=== PATIENT | male | born 1985 | race Caucasian/White ===

== ENCOUNTER 2017-01-20 11:51 | Emergency (ER) | payer SELFPAY ==
[~2017-01-20] VITALS: Ht 167.6 cm; Wt 65.8 kg
[2017-01-20 11:59] VITALS: BP 126/66
--- NOTE | 2017-01-20 13:08 | NUR ---
32M BIB SELF C/O RECTAL PAIN, SHARP/PRESSURE, NON-RADIATING, 4/10 X 4 DAYS; PT STATES NOTES HEMORRHOIDS TO RECTAL AREA W/ SWELLING SINCE THURSDAY; PT STATES HAS HAD CONSTIPATION X 3 DAYS W/ BOWEL MOVEMENT TODAY; ABDOMEN SOFT, NON-TENDER, ACTIVE BOWEL SOUNDS X4 QUADRANTS; PT DENIES N/V/D AT THIS TIME; PT C/O PRODUCTIVE COUGH W/ WHITE MUCOUS X 1 WEEK; BL LUNG SOUNDS CLEAR, RR EVEN/UNLABORED, SKIN IS WARM/DRY/INTACT AT THIS TIME; PT A&OX4, PERRL; RESTING IN BED W/ HOB ELEVATED AND IN LOWEST POSITION; POSITIONED FOR COMFORT; ER MD MADE AWARE OF STATUS. WILL CONTINUE TO MONITOR.
--- NOTE | 2017-01-20 13:08 | NUR ---
Patient ambulated to bed 03.
--- NOTE | 2017-01-20 13:09 | NUR ---
Dr. Kelley evaluating patient at bedside.
[2017-01-20 13:28] VITALS: BP 132/76
--- NOTE | 2017-01-20 13:28 | NUR ---
Patient discharged with v/s stable. Written and verbal after care instructions given and explained. Patient alert, oriented and verbalized understanding of instructions. Carried with to car. All questions addressed prior to discharge. ID band removed. Patient advised to follow up with PMD. Rx of COLACE 100MG, ANUSOL HC 25MG & KEFLEX 500MG given. Patient educated on indication of medication including possible reaction and side effects. Opportunity to ask questions provided and answered.
== END 2017-01-20 13:28 | disposition home or self-care (01) ==
LOC: MED 11:51
DX: K59.00 Constipation, unspecified (principal); K21.9 Gastro-esophageal reflux disease without esophagitis

== ENCOUNTER 2019-06-06 12:20 | Emergency (ER) | payer SELFPAY ==
[~2019-06-06] VITALS: Ht 167.6 cm; Wt 65.8 kg
[2019-06-06 12:31] VITALS: BP 131/80
--- NOTE | 2019-06-06 12:33 | NUR ---
PT TO BED 9 WITH STEADY GAIT
--- NOTE | 2019-06-06 12:38 | NUR ---
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 PAIN 11/07. PMH- DENIES RX- TYLENOL YESTERDAY FOR PAIN
--- NOTE | 2019-06-06 13:15 | NUR ---
DR GALICIA AT BEDSIDE
--- NOTE | 2019-06-06 13:22 | NUR ---
PT BEING WHEELCHAIRED TO XRAY
--- NOTE | 2019-06-06 13:33 | NUR ---
PT RETURNED FROM XRAY
[2019-06-06 14:09] VITALS: BP 131/80
== END 2019-06-06 14:09 | disposition home or self-care (01) ==
LOC: MED 12:20
DX: S22.32XA Fracture of one rib, left side, initial encounter for closed fracture (principal); K21.9 Gastro-esophageal reflux disease without esophagitis; W50.0XXA Accidental hit or strike by another person, initial encounter; Y92.89 Other specified places as the place of occurrence of the external cause; Y93.I1 Activity, roller coaster riding; Y99.8 Other external cause status
CPT/HCPCS: 71101; 99283

== ENCOUNTER 2019-06-08 12:23 | Emergency (ER) | payer SELFPAY ==
[~2019-06-08] VITALS: Ht 167.6 cm; Wt 65.8 kg
[2019-06-08 12:51] VITALS: BP 129/67
--- NOTE | 2019-06-08 14:58 | NUR ---
AMBULATED TO ER BED 2
--- NOTE | 2019-06-08 15:20 | NUR ---
PT BIB SELF TO ER TO FOLLOW UP FOR LEFT RIBS PAIN X 3 DAYS . SEEN HERE 3 DAYS AGO. PT STATED HE HAS FRACTURE LEFT RIBS. 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 DENIES ANY MEDICAL PROBLEM AT THIS TIME. DENIES ANY DISTRESS, FEVER, N, V OR PAIN. ER MD TO SEE THE PT. MED HX: DENIES
[2019-06-08 15:44] VITALS: BP 130/70
--- NOTE | 2019-06-08 15:44 | NUR ---
Patient discharged with v/s stable. Written and verbal after care instructions given and explained. Patient alert, oriented and verbalized understanding of instructions. Ambulatory with steady gait. All questions addressed prior to discharge. ID band removed. Patient advised to follow up with PMD. Opportunity to ask questions provided and answered.
== END 2019-06-08 15:44 | disposition home or self-care (01) ==
LOC: MED 12:23
DX: R07.81 Pleurodynia (principal); K21.9 Gastro-esophageal reflux disease without esophagitis
CPT/HCPCS: 99283

== ENCOUNTER 2022-04-15 17:29 | Emergency (ER) | payer BC ==
[~2022-04-15] VITALS: Ht 167.6 cm; Wt 68.5 kg
[2022-04-15 18:08] VITALS: BP 133/79
--- NOTE | 2022-04-15 18:17 | NUR ---
KANDIS Hudson is evaluating patient at bedside
--- NOTE | 2022-04-15 18:17 | NUR ---
C/o abdomen abscess not healing. Pt states possible spider bite 2 weeks ago, [place] [facility] [place] PO ABX day 6 without relief to symptoms, seen again 04/12 and given IM ABX. Urgent Care advised to be reevaluated for symptoms. Denies fever, chills. Open wound to low mid abdomen with band aid applied; no bleeding/drainage. 10/07 pain. PMH/Sx/Meds: Denies NKDA
--- NOTE | 2022-04-15 18:20 | NUR ---
PT TO WAIT OUTSIDE ER LOBBY
--- NOTE | 2022-04-15 18:35 | NUR ---
Patient discharged with v/s stable. Written and verbal after care instructions given. Patient verbalized understanding. Ambulatory with steady gait. All questions addressed prior to discharge. Advised to follow up with PMD.
== END 2022-04-15 18:35 | disposition home or self-care (01) ==
LOC: MED 17:29
DX: S31.103D Unspecified open wound of abdominal wall, right lower quadrant without penetration into peritoneal cavity, subsequent encounter (principal); K21.9 Gastro-esophageal reflux disease without esophagitis; X58.XXXD Exposure to other specified factors, subsequent encounter
CPT/HCPCS: 99281

== ENCOUNTER 2022-12-09 18:41 | Emergency (ER) | payer SELFPAY ==
[~2022-12-09] VITALS: Ht 167.6 cm; Wt 72.6 kg
[2022-12-09 18:55] VITALS: BP 111/67
--- NOTE | 2022-12-09 20:42 | NUR ---
Called no show in lobby or outside.
--- NOTE | 2022-12-09 20:42 | NUR ---
Patient Left without D/C papers.
== END 2022-12-09 20:42 | disposition home or self-care (01) ==
LOC: MED 18:41
DX: N50.89 Other specified disorders of the male genital organs (principal); K21.9 Gastro-esophageal reflux disease without esophagitis
CPT/HCPCS: 99281

== ENCOUNTER 2023-04-02 18:12 | Emergency (ER) | payer SELFPAY ==
--- NOTE | 2023-04-02 19:05 | NUR ---
PATIENT LEFT WITHOUT BEING SEEN BY . NO FURTHER CARE PROVIDED FOR PATIENT.
== END 2023-04-02 18:36 | disposition left against medical advice (07) ==
LOC: MED 18:12
DX: Z53.21 Procedure and treatment not carried out due to patient leaving prior to being seen by health care provider (principal)

== ENCOUNTER 2024-07-21 15:22 | Emergency (ER) | payer SELFPAY ==
[~2024-07-21] VITALS: Ht 167.6 cm; Wt 68.0 kg
[2024-07-21 15:45] VITALS: BP 109/67; PULSE 62; RESP 18; TEMP 98.4; O2SAT 97
[2024-07-21] MEDS: KETOROLAC 30 MG/ML VIAL IM ONE (16:35)
[2024-07-21] MEDS: LIDOCAINE 5% 1 EA PATCH TP ONE (16:36)
[2024-07-21 16:45] VITALS: O2SAT 97
[2024-07-21] MEDS ORDERED: IBUP-2213 PO (17:00)
[2024-07-21] MEDS ORDERED: LID5T TP (17:00)
[2024-07-22] MEDS ORDERED: LIDO5TDM45 TP (15:16)
== END 2024-07-21 17:09 | disposition home or self-care (01) ==
LOC: MED 15:22
DX: S20.212A Contusion of left front wall of thorax, initial encounter (principal); K21.9 Gastro-esophageal reflux disease without esophagitis; Z79.899 Other long term (current) drug therapy; W01.0XXA Fall on same level from slipping, tripping and stumbling without subsequent striking against object, initial encounter; Y93.89 Activity, other specified; Y92.89 Other specified places as the place of occurrence of the external cause; Y99.8 Other external cause status
CPT/HCPCS: 71101; 96372; 99283; J1885

== ENCOUNTER 2024-07-22 13:52 | Emergency (ER) | payer MEDICAID ==
[~2024-07-22] VITALS: Ht 167.6 cm; Wt 68.0 kg
[~2024-07-22 13:52] MED LIST: IBUP-2213 PO; LID5T TP
[2024-07-22 14:16] VITALS: BP 112/68; PULSE 64; RESP 18; TEMP 98; O2SAT 99
[2024-07-22] MEDS ORDERED: LIDO5TDM45 TP (15:16)
[2024-07-22] MEDS: LIDOCAINE 5% 1 EA PATCH TP ONE (15:28)
[2024-07-22 15:31] VITALS: BP 112/68; PULSE 64; RESP 18; TEMP 98; O2SAT 99
== END 2024-07-22 15:31 | disposition home or self-care (01) ==
LOC: MED 13:52
DX: S20.212D Contusion of left front wall of thorax, subsequent encounter (principal); K21.9 Gastro-esophageal reflux disease without esophagitis; Z79.899 Other long term (current) drug therapy; W20.8XXD Other cause of strike by thrown, projected or falling object, subsequent encounter
CPT/HCPCS: 99282